=== PATIENT | male | born 1975 | race Caucasian/White ===

== ENCOUNTER 2017-07-07 18:33 | Emergency (ER) | payer MEDICARE ==
[2017-07-07 19:40] LABS: BASO # 0.1 10_X3_uL (0.0-0.1); BASO % 0.7 % (0.2-1.2); EOS # 0.4 10_X3_uL (0.0-0.5); EOS % 3.3 % (0.8-7.0); GRAN # 6.3 10_X3_uL (1.8-5.4); GRAN % 59.9 % (34.0-67.9); HEMATOCRIT 38.8 % (40-51); HEMOGLOBIN 14.6 g/dL (13.7-17.5); LYMPH # 2.6 10_X3_uL (1.3-3.6); LYMPH % 24.9 % (21.8-53.1); MEAN CORPUSCULAR HEMOGLOBIN 39.4 pg (27.0-33.0); MEAN CORPUSCULAR HGB CONC 37.6 g/dL (32.0-36.0); MEAN CORPUSCULAR VOLUME 104.6 fL (79-92); MEAN PLATELET VOLUME 9.6 fl (7.5-11.5); MONO # 1.2 10_X3_uL (0.3-0.8); MONO % 11.2 % (5.3-12.2); PLATELET COUNT 166 x10_3/uL (163-337); RED BLOOD COUNT 3.71 x10_6/uL (4.6-6.1); RED CELL DISTRIBUTION WIDTH 13.4 % (11.6-14.4); WHITE BLOOD COUNT 10.6 x10_3/uL (4.2-9.1)
[2017-07-07 19:58] LABS: ALKALINE PHOSPHATASE 152 U/L (50-136); ALT/SGPT 50 U/L (7.53-40.17); AST/SGOT 146 U/L (6.66-35.34); BILIRUBIN,TOTAL 0.53 mg/dL (0.0-1.0); BLOOD UREA NITROGEN 9 mg/dL (7-18); CALCIUM 8.9 mg/dL (8.7-10.7); CARBON DIOXIDE 23 mmol/L (21-32); CREATININE 0.6 mg/dL (0.6-1.3); GLUCOSE,RANDOM 130 mg/dL (70-99); POTASSIUM 3.2 mmol/L (3.5-5.1); SODIUM 137 mmol/L (136-145); TOTAL PROTEIN 7.1 gm/dL (6.4-8.2)
[2017-07-07 20:07] LABS: DDIMER 2.14 mgFEU/L (0.19-0.50); INR 1.1 (1.0-1.1); PARTIAL THROMBOPLASTIN TIME 22.9 SECONDS (21.8-28.4); PROTHROMBIN TIME (PATIENT) 10.7 SECONDS (9.6-10.8)
== END 2017-07-07 20:33 | disposition home or self-care (01) ==
LOC: ER 18:33
PROVIDERS: Internal Medicine
DX: M79.604 Pain in right leg (principal); R60.9 Edema, unspecified; Z98.890 Other specified postprocedural states; F17.210 Nicotine dependence, cigarettes, uncomplicated
CPT/HCPCS: 36415; 80053; 85025; 85379; 85610; 85730; 96372; 99283-25; G0480

== ENCOUNTER 2017-07-08 15:50 | Emergency (ER) | payer MEDICARE ==
[~2017-07-08] VITALS: Ht 180.3 cm; Wt 78.0 kg
== END 2017-07-08 16:42 | disposition home or self-care (01) ==
LOC: EDSTATUS 15:50 → ER 15:51
DX: I82.401 Acute embolism and thrombosis of unspecified deep veins of right lower extremity (principal); M79.604 Pain in right leg; Z98.890 Other specified postprocedural states; F17.210 Nicotine dependence, cigarettes, uncomplicated; Z88.8 Allergy status to other drugs, medicaments and biological substances
CPT/HCPCS: 93971; 99283